=== PATIENT | male | born 1980 | race Caucasian/White ===

== ENCOUNTER 2019-03-03 17:54 | Emergency (ER) | payer OTHER ==
[~2019-03-03] VITALS: Ht 182.9 cm; Wt 95.5 kg
[2019-03-03 18:16] VITALS: Ht 182.9 cm; Wt 95.5 kg
[2019-03-03] MEDS ORDERED: ADDERALL 20 MG20 M1 PO (18:17)
[2019-03-03] MEDS ORDERED: KLONOPIN0.5 MG PO (18:18)
[2019-03-03] MEDS ORDERED: OMEPRAZOLE40 MG PO (18:18)
[2019-03-03 19:29] LABS: BASOPHILS 0.3 % (0-2); EOSINOPHILS 2.9 % (0-7); HEMATOCRIT 52.7 % (42.0-54.0); HEMOGLOBIN 18.1 g/dL (13.5-17.5); IMMATURE GRANULOCYTES 0.6 % (0-5); LYMPHOCYTES 16.4 % (15-50); MCH 33.4 pg (26.0-34.0); MCHC 34.3 g/dL (31.0-37.0); MCV 97.2 fL (80.0-100.0); MEAN PLATELET VOLUME 9.2 fL (7.4-10.4); MONOCYTES 7.4 % (2-11); NEUTROPHILS 72.4 % (40-80); PLATELET COUNT 211 10x3/uL (130-400); RBC 5.42 10x6/uL (4.20-6.10); RDW 12.3 % (11.5-14.5); WBC 8.8 10x3/uL (4.8-10.8)
[2019-03-03 19:37] LABS: APTT 27.1 SECONDS (22.8-39.4); INR 1.04 (0.85-1.17); PROTIME 13.1 SECONDS (11.6-15.0)
[2019-03-03 19:40] LABS: CALC OSMOLALITY 279 mosm/kg (275-300); CARBON DIOXIDE 27.8 mmol/L (21.0-32.0); CHLORIDE - SERUM 103 mmol/L (98-107); CREATININE - SERUM 0.9 mg/dL (0.6-1.3); GLUCOSE 111 mg/dL (74-106); POTASSIUM - SERUM 4.2 mmol/L (3.5-5.1); SODIUM 139 mmol/L (136-145); UREA NITROGEN 16 mg/dL (7-18); eGFR NON AFRICAN AMERICAN > 90 mL/min (90-120)
[2019-03-03 19:45] LABS: ALBUMIN 3.7 g/dL (3.4-5.0); ALKALINE PHOSPHATASE 105 U/L (46-116); ALT (SGPT) 67 U/L (10-68); BILIRUBIN - TOTAL 0.43 mg/dL (0.2-1.3); PROTEIN - SERUM 7.5 g/dL (6.4-8.2)
[2019-03-03] MEDS ORDERED: FIORICET/ESGIC1 TAB PO (20:15)
[2019-03-03 20:46] VITALS: BP 141/89
== END 2019-03-03 20:46 | disposition home or self-care (01) ==
LOC: D.ER 17:54
PROVIDERS: Family Medicine
DX: R04.0 Epistaxis (principal); R51 Headache; K21.9 Gastro-esophageal reflux disease without esophagitis